=== PATIENT | female | born 1970 | race Hispanic/Latino ===

== ENCOUNTER 2022-12-28 08:47 | Day surgery (SDC) | payer OTHER ==
[~2022-12-28] VITALS: Ht 152.4 cm; Wt 57.6 kg
[~2022-12-28 08:47] MED LIST: B12; D3; LANTUS100 UNIT; LISINOP/HCTZ1 TAB PO; METFORMIN HYD1000 MG PO; NAPROSYN500 MG PO; ROSUVASTATIN CA40 MG PO
[2022-12-28 11:05] VITALS: BP 116/68
== END 2022-12-28 11:01 | disposition home or self-care (01) | DRG 379 ==
LOC: ENDO 08:47 → ORM 10:30 → ENDO 11:01
PROVIDERS: ATTEND Surgery
PROC: 0DJD8ZZ Inspection of Lower Intestinal Tract, Via Natural or Artificial Opening Endoscopic (ICD-10-PCS; principal; 2022-12-28)
DX: K92.1 Melena (principal); K64.8 Other hemorrhoids; I10 Essential (primary) hypertension; E11.9 Type 2 diabetes mellitus without complications; Z79.4 Long term (current) use of insulin; Z79.84 Long term (current) use of oral hypoglycemic drugs

== ENCOUNTER 2024-08-11 20:11 | Emergency (ER) | payer OTHER ==
[~2024-08-11] VITALS: Ht 152.4 cm; Wt 56.3 kg
[~2024-08-11 20:11] MED LIST changes: +JARDIANCE25 MG PO; -LANTUS100 UNIT; +LANTUS100 UNIT SC
[2024-08-11 20:33] VITALS: BP 184/79
[2024-08-11] MEDS ORDERED: DOXYCYCLINE HYCLATE 100 MG/CAP PO ONE (20:40)
[2024-08-11] MEDS ORDERED: oxyCODONE 5MG/ ACETAMINOPHEN 325MG TAB PO ONE (20:40)
[2024-08-11] MEDS ORDERED: LIDOCAINE VISCOUS 2% 15 ML UDC PO ONE (20:40)
[2024-08-11] MEDS ORDERED: PERCOCET 5/325M1 TAB PO (20:42)
[2024-08-11] MEDS ORDERED: DOXYCYCL HYC100 M4 PO (20:42)
[2024-08-11] MEDS ORDERED: LIDOCAINE21 MT (20:42)
[2024-08-11 20:45] VITALS: BP 151/74
[2024-08-11] MEDS ORDERED: LISINOPRIL5 MG PO (20:45)
[2024-08-11 21:00] VITALS: BP 139/74
[2024-08-11 21:15] VITALS: BP 139/78
[2024-08-11 21:30] VITALS: BP 156/84
[2024-08-11 21:34] VITALS: BP 156/84
== END 2024-08-11 21:34 | disposition home or self-care (01) | DRG 159 ==
LOC: ED 20:11
DX: K02.9 Dental caries, unspecified (principal); I10 Essential (primary) hypertension; E11.9 Type 2 diabetes mellitus without complications; Z79.84 Long term (current) use of oral hypoglycemic drugs; Z79.4 Long term (current) use of insulin